=== PATIENT | male | born 1995 | race Hispanic/Latino ===

== ENCOUNTER 2024-06-21 12:49 | Emergency (ER) | payer OTHER ==
[2024-06-21] MEDS ORDERED: BUPIVACAINE 0.5% PF 10 ML VIAL ONE (13:07)
[2024-06-21] MEDS ORDERED: LIDOCAINE 1% MPF 5 ML VIAL ONE (13:07)
--- NOTE | 2024-06-21 14:13 | EDPHYS ---
Physician Documentation [facility] Name: Timbo Ruiz Age: 28 yrs Sex: Male : 1995 Arrival Date: 06/21/2024 Time: 12:49 Bed 26 Private MD: ED Physician Nicolas Negron HPI: 06/21 13:01 This 28 yrs old Male presents to ER via Unassigned with complaints of Finger kb Injury. 13:01 Pt is a 28 year old male who fell at 0400 this morning and tried to catch himself with kb his left hand causing deformity to left middle finger. Denies any other injuries. Historical: - Allergies: 13:02 No Known Allergies; me1 - Home Meds: 13:02 None [Active]; me1 - PMHx: 13:02 None; me1 - PSHx: 13:02 None; me1 - Immunization history:: Adult Immunizations up to date. - Infectious Disease History:: Denies. - Social history:: Smoking status: Patient denies any tobacco usage or history of. ROS: 13:02 Constitutional: As per HPI kb Exam: 13:02 Constitutional: This is a well developed, well nourished patient who is awake, alert, kb and in no acute distress. Head/Face: Normocephalic, atraumatic. ENT: Moist Mucous membranes Cardiovascular: Regular rate Respiratory: Respirations even and unlabored. No increased work of breathing. Talking in full sentences Skin: Warm, dry with normal turgor. Normal color. Neuro: Awake and alert, GCS 15, oriented to person, place, time, and situation. 13:02 Musculoskeletal/extremity: Extremities: grossly normal except: noted in the left middle finger: decreased ROM, deformity, pain, ROM: limited active range of motion, Circulation is intact in all extremities. Sensation intact. Vital Signs: 12:51 BP 151 / 96; Pulse 81; Resp 16; Temp 98.7; Pulse Ox 98% ; Weight 91.17 kg; Height 5 ft. me1 7 in. ; Pain 5/10; 13:00 BP 143 / 90; Pulse 77; Resp 16; Pulse Ox 97% ; me1 14:00 BP 121 / 86; Pulse 82; Resp 16; Temp 98.4; Pulse Ox 97% ; me1 15:00 BP 126 / 79; Pulse 81; Resp 16; Pulse Ox 98% ; me1 16:00 BP 124 / 82; Pulse 79; Resp 16; Temp 98.4; Pulse Ox 100% ; me1 12:51 Body Mass Index 31.48 (91.17 kg, 170.18 cm) me1 12:51 Pain Scale: Adult me1 Procedures: 13:18 Nerve block: (digital) of palmar aspect of proximal phalanx of left middle finger kb Medication: Lidocaine 1% without epinephrine Marcaine 0.5%, Amount: 5 mls were injected, Effect: the patient has resolution of the pain, Set up for procedure. Performed by Aparna BANKS Patient tolerated well. 14:09 Reduction: of the PIP of left middle finger, using traction, manipulation, Immobilized kb with finger splint, Patient tolerated well. Post reduction film - reveals normal alignment. MDM: 12:54 Medical Screening Exam initiated kb 13:03 Data reviewed: vital signs, nurses notes. kb 14:10 Differential diagnosis: fracture, dislocation. Independent interpretation of the kb following test(s) in the Emergency Department X-Ray: My interpretation is initial xray showed dislocation to PIP joint of left middle finger. Reduction completed and post reduction xray shows normal alignment without fracture. . Counseling: I had a detailed discussion with the patient and/or guardian regarding the historical points, exam findings, and any diagnostic results supporting the discharge/admit diagnosis, radiology results, the need for outpatient follow up, a orthopedic surgeon, to return to the emergency department if symptoms worsen or persist or if there are any questions or concerns that arise at home. 06/21 14:21 Order name: Hand Left 2 View; Complete Time: 14:43 EDMS 06/21 14:11 Order name: Finger Splint; Complete Time: 14:16 kb Administered Medications: 13:17 Drug: Bupivacaine Infiltration (0.5 %) 1 vials 10 ml Infiltration once {Note: wv1 Administered by EULA Mcqueen.} Volume: 10 ml; Route: Infiltration; 13:30 Follow up: Response: No adverse reaction; Pain is decreased me1 13:17 Drug: Lidocaine Infiltration (1 %) 5 mg Infiltration once {Note: Administered by [facility] [place]. Charisse} Route: Infiltration; 13:30 Follow up: Response: No adverse reaction; Pain is decreased me Disposition Summary: 06/21/24 14:12 Discharge Ordered Notes: Condition: Stable kb Location: [employer](06/21/24 14:12) kb Diagnosis - Dislocation of proximal interphalangeal joint of left middle finger, initial kb encounter Followup: kb - With: Emergency Department - When: As needed - Reason: Worsening of condition Followup: kb - With: Private Physician - When: 2 - 3 days - Reason: Recheck today's complaints, Continuance of care, Re-evaluation by your physician Discharge Instructions: - Discharge Summary Sheet kb - Finger or Thumb Dislocation, Motc-no-Yaym kb Forms: - Medication Reconciliation Form kb - Antibiotic Education kb - Prescription Opioid Use kb - Patient Portal Instructions kb - Leadership Thank You Letter kb Addendum: 06/24/2024 22:50 Co-signature as Attending Physician, Nicolas Negron MD I reviewed the patient's care r n provided by the Advanced Practice Provider and agree with the diagnosis and treatment plan. Signatures: Dispatcher [employer] Aparna Gauthier, BESSEMER CONVERTER OPERATOR-C BESSEMER CONVERTER OPERATOR-Ckb Nicolas Negron MD MD rn Eddleman, Michelle, RN RN me1 Corrections: (The following items were deleted from the chart) 06/21 14:12 14:12 Home kb kb 14:21 12:57 Hand Left 3 View+RAD.RAD.BRZ ordered. LUIS SMITH
--- NOTE | 2024-06-21 14:13 | ER ---
Nurse's Notes [facility] Name: Timbo Ruiz Age: 28 yrs Sex: Male : 1995 Arrival Date: 06/21/2024 Time: 12:49 Bed 26 Private MD: Diagnosis: Dislocation of proximal interphalangeal joint of left middle finger, initial encounter Presentation: 06/21 12:51 Chief complaint: Patient states: he tripped and fell about 4 am and when he caught me1 himself he injured his left 3rd digit. visible deformity noted. Coronavirus screen: Vaccine status: Patient reports receiving the 2nd dose of the covid vaccine. Ebola Screen: No symptoms or risks identified at this time. Initial Sepsis Screen: Does the patient meet any 2 criteria? No. Patient's initial sepsis screen is negative. Does the patient have a suspected source of infection? No. Patient's initial sepsis screen is negative. Risk Assessment: Do you want to hurt yourself or someone else? Patient reports no desire to harm self or others. Onset of symptoms was June 21, 2024 at 04:00. 12:51 Method Of Arrival: Ambulatory [facility] 12:51 Acuity: DEMETRIO 4 me1 Triage Assessment: 13:02 General: Appears uncomfortable, well groomed, well developed, well nourished, Behavior me1 is calm, cooperative, appropriate for age. Pain: Complains of pain in left middle finger Pain does not radiate. Pain currently is 5 out of 10 on a pain scale. Quality of pain is described as aching, Pain began suddenly, Is continuous. EENT: No signs and/or symptoms were reported regarding the EENT system. Neuro: Level of Consciousness is awake, alert, obeys commands, Oriented to person, place, time, situation, Appropriate for age. Cardiovascular: Patient's skin is warm and dry. Respiratory: Airway is patent Respiratory effort is even, unlabored, Respiratory pattern is regular, symmetrical. GI: No signs and/or symptoms were reported involving the gastrointestinal system. : No signs and/or symptoms were reported regarding the genitourinary system. Derm: Wound noted left middle finger. Musculoskeletal: Reports pain in left middle finger deformity noted. Injury Description: tripped and fell and injured his left middle finger. Historical: - Allergies: 13:02 No Known Allergies; me1 - Home Meds: 13:02 None [Active]; me1 - PMHx: 13:02 None; me1 - PSHx: 13:02 None; me1 - Immunization history:: Adult Immunizations up to date. - Infectious Disease History:: Denies. - Social history:: Smoking status: Patient denies any tobacco usage or history of. Screenin:05 [facility] ED Fall Risk Assessment (Adult) History of falling in the last 3 months, wv1 including since admission Yes- single mechanical fall (1 pt) Confusion or Disorientation No (0 pts) Intoxicated or Sedated No (0 pts) Impaired Gait No (0 pts) Mobility Assist Device Used No (0 pt) Altered Elimination No (0 pt) Score/Fall Risk Level 0 - 2 = Low Risk Maintained a safe environment, Provided non-skid footwear, Hourly rounding (assess needs \T\ fall precautionary measures) done. Abuse screen: Denies threats or abuse. Nutritional screening: No deficits noted. Tuberculosis screening: No symptoms or risk factors identified. Assessment: 13:05 General: See triage assessment. . me1 14:45 General: Discharge delayed waiting on transport. me1 Vital Signs: 12:51 BP 151 / 96; Pulse 81; Resp 16; Temp 98.7; Pulse Ox 98% ; Weight 91.17 kg; Height 5 ft. me1 7 in. ; Pain 5/10; 13:00 BP 143 / 90; Pulse 77; Resp 16; Pulse Ox 97% ; me1 14:00 BP 121 / 86; Pulse 82; Resp 16; Temp 98.4; Pulse Ox 97% ; me1 15:00 BP 126 / 79; Pulse 81; Resp 16; Pulse Ox 98% ; me1 16:00 BP 124 / 82; Pulse 79; Resp 16; Temp 98.4; Pulse Ox 100% ; me1 12:51 Body Mass Index 31.48 (91.17 kg, 170.18 cm) me1 12:51 Pain Scale: Adult wv1 ED Course: 12:50 Patient arrived in ED. iw 12:51 Jamia Oneil, MARIFER is Primary Nurse. me1 12:54 Aparna Lock FNP-C is [facility]. kb 12:54 Nicolas Negron MD is Attending Physician. kb 13:02 Triage completed. me1 13:02 Arm band placed on Patient placed in an exam room. me1 13:05 Patient has correct armband on for positive identification. Bed in low position. Call me1 light in reach. Side rails up X 1. Provided Education on: POC. Verbalized understanding. . Client placed on continuous cardiac and pulse oximetry monitoring. NIBP monitoring applied. Pulse ox on. NIBP on. 13:05 No provider procedures requiring assistance completed. Patient did not have IV access me1 during this emergency room visit. 14:21 Hand Left 2 View In Process Unspecified. EDMS Administered Medications: 13:17 Drug: Bupivacaine Infiltration (0.5 %) 1 vials 10 ml Infiltration once {Note: me1 Administered by FNP. Charisse} Volume: 10 ml; Route: Infiltration; 13:30 Follow up: Response: No adverse reaction; Pain is decreased me1 13:17 Drug: Lidocaine Infiltration (1 %) 5 mg Infiltration once {Note: Administered by me1 FNP. Charisse} Route: Infiltration; 13:30 Follow up: Response: No adverse reaction; Pain is decreased me1 Medication: 13:05 VIS not applicable for this client. me1 Outcome: 14:12 Discharge ordered by MD. joseph 14:20 Discharged to [facility] me1 14:20 Condition: stable 14:20 Discharge instructions given to patient, guards Instructed on discharge instructions, follow up and referral plans. Demonstrated understanding of instructions, follow-up care, splint care, 16:11 Patient left the ED. me1 Signatures: Dispatcher [employer] Aparna Gauthier, DARREN FORDE-Marilee Martínez RN RN Jamia Oneil RN RN me1
--- NOTE | 2024-06-21 14:41 | RAD REPORT ---
Exam:Hand Left 2 View CLINICAL HISTORY: Left hand pain FINDINGS: Initial images demonstrate a posterior dislocation third middle phalanx. No fracture visualized. Subsequent images demonstrate reduction of the dislocation.
[2024-06-21 22:10] VITALS: O2SAT 97
[2024-06-21 22:12] VITALS: BP 121/86; TEMP 98.4
== END 2024-06-21 16:11 ==
LOC: ER 12:49
DX: S63.283A Dislocation of proximal interphalangeal joint of left middle finger, initial encounter (principal); W18.30XA Fall on same level, unspecified, initial encounter
CPT/HCPCS: 73120; 64450; 99284; 26770; J2001; J2003